=== PATIENT | female | born 1960 | race Caucasian/White ===

== ENCOUNTER 2021-02-13 13:34 | Emergency (ER) | payer OTHER ==
[~2021-02-13 13:34] MED LIST: ASPIRIN EC325 MG PO; CARBIDOPA-LEVO1 EA14 PO; CYCLOBENZAPRINE10 MG PO; ELAVIL 50 MG TA50 MG PO; GABAPENTIN600 MG PO; HYDROCODON-ACE1 EAC6 PO; IMDUR ER TAB 6060 MG PO; LEVOTHYROXINE50 MCG PO; LOPRESSOR 25 MG25 MG PO; METOPROLOL PO; OMEPRAZOLE20 MG PO; PAROXETINE HCL40 MG PO; TOPAMAX PO
[2021-02-13 14:23] LABS: HEMOGLOBIN 16.2 gm/dl (12.3-15.3); RED BLOOD COUNT 5.16 M/UL (4.00-5.10); WHITE BLOOD COUNT 5.3 K/UL (4.5-11.0)
== END 2021-02-13 20:10 | disposition home or self-care (01) ==
LOC: ER1 13:34
PROVIDERS: Physician Assistant
DX: M79.662 Pain in left lower leg (principal); I10 Essential (primary) hypertension; E78.5 Hyperlipidemia, unspecified; Z88.6 Allergy status to analgesic agent; E66.9 Obesity, unspecified; G25.81 Restless legs syndrome; Z88.5 Allergy status to narcotic agent
CPT/HCPCS: 80053; 85025; 85379; 85610; 99283